=== PATIENT | female | born 1970 | race African-American/Black ===

== ENCOUNTER 2017-10-10 14:47 | Day surgery (SDC) | payer BC ==
[2017-10-10] MEDS ORDERED: LIDOCAINE 100 MG SYRINGE (15:53)
[2017-10-10] MEDS ORDERED: PROPOFOL 40 ML (15:53)
== END 2017-10-10 16:33 | disposition home or self-care (01) ==
LOC: GIL 14:47
DX: R19.4 Change in bowel habit (principal); K21.9 Gastro-esophageal reflux disease without esophagitis; K29.70 Gastritis, unspecified, without bleeding; K64.8 Other hemorrhoids; E66.9 Obesity, unspecified; Z68.31 Body mass index [BMI] 31.0-31.9, adult
CPT/HCPCS: 43239; 84703